=== PATIENT | male | born 1970 | race Caucasian/White ===

== ENCOUNTER 2017-05-01 08:15 | Emergency (ER) | payer SELFPAY ==
[2017-05-01] MEDS ORDERED: Sodium Chloride 0.9% 2.5 ML Syringe FLUSH PRN (08:19)
[2017-05-01] MEDS ORDERED: Sodium Chloride 0.9% 10 ML Syringe FLUSH PRN (08:19)
--- NOTE | 2017-05-01 08:34 | EDM.PDOC ---
ED HPI GENERAL MEDICAL PROBLEM - General Chief Complaint: Upper Extremity Injury/Pain Stated Complaint: LEFT ARM TINGLING AND BURNING Time Seen by Provider: 05/01/17 08:19 Source of Information: Reports: Patient History Limitations: Reports: No Limitations - History of Present Illness INITIAL COMMENTS - FREE TEXT/NARRATIVE: History of present illness: []Patient is a right-handed male presents with left hand numbness, weakness and "clumsiness" his left hand since 3 in the morning. He states the numbness until goes up to mid forearm and has never felt this in the past. He denies chest pain , dizziness, headache, shortness of breath or any other numbness or weakness in his body. 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 Review of systems: As per history of present illness and below otherwise all systems reviewed and negative. Past medical history: As per history of present illness and as reviewed below otherwise noncontributory. Surgical history: As per history of present illness and as reviewed below otherwise noncontributory. Social history: No reported history of drug or alcohol abuse. Family history: As per history of present illness and as reviewed below otherwise noncontributory. Physical exam: General: Well developed, well nourished patient is very anxious and tearful HEENT: Atraumatic, normocephalic, pupils reactive, negative for conjunctival pallor or scleral icterus, mucous membranes moist, throat clear, neck supple, nontender, trachea midline. Lungs: Clear to auscultation, breath sounds equal bilaterally, chest nontender. Heart: S1S2, regular, negative for clicks, rubs, or JVD. Abdomen: Soft, nondistended, nontender. Negative for masses or hepatosplenomegaly. Negative for costovertebral tenderness. Pelvis: Stable nontender. Genitourinary: Deferred. Rectal: Deferred. Extremities: Atraumatic, negative for cords or calf pain. Neurovascular unremarkable. Neuro: Awake, alert, oriented. Cranial nerves II through XII unremarkable. Cerebellum unremarkable. On initial extremity Exam patient had a marked weakness of superintendent general on the left with numbness and tingling medial nerve distribution Diagnostics: []Stroke workup done and results all negative Therapeutics: [] Impression: []Right arm numbness and tingling, resolved Plan: []Follow-up primary care this is more likely carpal tunnel syndrome and would recommend further workup with EMG studies if symptoms recur Definitive disposition and diagnosis as appropriate pending reevaluation and review of above. left arm Pain Score (Numeric/FACES): 1 - Related Data Allergies Allergy/AdvReac Type Severity Reaction Status Date / Time No Known Allergies Allergy Verified 05/01/17 08:23 Home Meds: Home Meds . [No Known Home Meds] 05/01/17 [History] Review of Systems - Review of Systems Review Of Systems: See Below (See history of present illness) ED EXAM, GENERAL - Physical Exam Exam: See Below (See history of present illness) Course - Vital Signs Last Recorded V/S: Last Vital Signs Temp 97.3 F 05/01/17 08:15 Pulse 81 05/01/17 08:15 Resp 19 05/01/17 08:48 BP 117/73 05/01/17 08:48 Pulse Ox 98 05/01/17 08:48 - Orders/Labs/Meds Orders: Active Orders 24 hr Category Date Time Status Assess Neurological Status [RC] ASDIRECTED Care 05/01/17 08:19 Active Bedrest [RC] ASDIRECTED Care 05/01/17 08:19 Active Blood Glucose Check, Bedside [RC] STAT Care 05/01/17 08:19 Active Cardiac Monitoring [RC] . DIRECTED Care 05/01/17 08:19 Active EKG Documentation Completion [RC] STAT Care 05/01/17 08:19 Active Height and Weight [RC] UPON Care 05/01/17 08:19 Active Initiate Acute Stroke Protocol [RC] STAT Care 05/01/17 08:19 Active NIH Stroke Scale [RC] ASDIRECTED Care 05/01/17 08:19 Active Nursing Bedside Swallow Screen [RC] ASDIRECTED Care 05/01/17 08:19 Active Oxygen Therapy [RC] ASDIRECTED Care 05/01/17 08:19 Active Stroke Education, General [RC] Click to Edit Care 05/01/17 08:19 Active Vital Signs [RC] Q15M Care 05/01/17 08:19 Active Sodium Chloride 0.9% [Saline Flush] Med 05/01/17 08:19 Active 10 ml FLUSH ASDIRECTED PRN Sodium Chloride 0.9% [Saline Flush] Med 05/01/17 08:19 Active 2.5 ml FLUSH ASDIRECTED PRN Peripheral IV Insertion Adult [OM.PC] Stat Ot 05/01/17 08:19 Ordered Peripheral IV Insertion Adult [OM.PC] Stat Ot 05/01/17 08:19 Ordered Medication Orders Sodium Chloride (Saline Flush) 10 ml FLUSH ASDIRECTED PRN PRN Reason: Keep Vein Open Sodium Chloride (Saline Flush) 2.5 ml FLUSH ASDIRECTED PRN PRN Reason: Keep Vein Open Labs: Laboratory Tests 05/01/17 05/01/17 05/01/17 Range/Units 08:35 08:43 08:43 WBC 4.80 (4.0-11.0) K/uL RBC 4.69 (4.50-5.90) M/uL Hgb 13.5 (13.0-17.0) g/dL Hct 39.4 (38.0-50.0) % MCV 84.0 (80.0-98.0) fL MCH 28.8 (27.0-32.0) pg MCHC 34.3 (31.0-37.0) g/dL RDW Std Deviation 40.1 (28.0-62.0) fl RDW Coeff of Prateek 13 (11.0-15.0) % Plt Count 156 (150-400) K/uL MPV 10.80 (7.40-12.00) fL Neut % (Auto) 51.3 (48.0-80.0) % Lymph % (Auto) 30.4 (16.0-40.0) % [place] % (Auto) 13.1 (0.0-15.0) % Eos % (Auto) 4.6 (0.0-7.0) % Baso % (Auto) 0.6 (0.0-1.5) % Neut # (Auto) 2.5 (1.4-5.7) K/uL Lymph # (Auto) 1.5 (0.6-2.4) K/uL [place] # (Auto) 0.6 (0.0-0.8) K/uL Eos # (Auto) 0.2 (0.0-0.7) K/uL Baso # (Auto) 0.0 (0.0-0.1) K/uL Nucleated RBC % 0.0 /100WBC Nucleated RBCs # 0 K/uL INR 1.05 (0.86-1.11) APTT 29.2 (18.6-31.3) SEC Sodium (136-146) mmol/L Potassium (3.5-5.1) mmol/L Chloride (98-110) mmol/L Carbon Dioxide (21-31) mmol/L BUN (6.0-23.0) mg/dL Creatinine (0.6-1.5) mg/dL Est Cr Clr Drug Dosing mL/min Estimated GFR (MDRD) ml/min Glucose (60-110) mg/dL POC Glucose 93 (60-110) mg/dL Calcium (8.8-10.8) mg/dL Total Bilirubin (0.1-1.5) mg/dL AST (5-40) IU/L ALT (8-54) IU/L Alkaline Phosphatase (40-150) Troponin I (0.0-0.29) NG/ML Total Protein (6.0-8.0) g/dL Albumin (3.5-5.0) g/dL Globulin (2.0-3.5) g/dL Albumin/Globulin Ratio (1.3-2.8) TSH 3rd Generation (0.47-5.0) uIU/mL 05/01/17 Range/Units 08:43 WBC (4.0-11.0) K/uL RBC (4.50-5.90) M/uL Hgb (13.0-17.0) g/dL Hct (38.0-50.0) % MCV (80.0-98.0) fL MCH (27.0-32.0) pg MCHC (31.0-37.0) g/dL RDW Std Deviation (28.0-62.0) fl RDW Coeff of Prateek (11.0-15.0) % Plt Count (150-400) K/uL MPV (7.40-12.00) fL Neut % (Auto) (48.0-80.0) % Lymph % (Auto) (16.0-40.0) % [place] % (Auto) (0.0-15.0) % Eos % (Auto) (0.0-7.0) % Baso % (Auto) (0.0-1.5) % Neut # (Auto) (1.4-5.7) K/uL Lymph # (Auto) (0.6-2.4) K/uL [place] # (Auto) (0.0-0.8) K/uL Eos # (Auto) (0.0-0.7) K/uL Baso # (Auto) (0.0-0.1) K/uL Nucleated RBC % /100WBC Nucleated RBCs # K/uL INR (0.86-1.11) APTT (18.6-31.3) SEC Sodium 139 (136-146) mmol/L Potassium 3.7 (3.5-5.1) mmol/L Chloride 107 (98-110) mmol/L Carbon Dioxide 25 (21-31) mmol/L BUN 8 (6.0-23.0) mg/dL Creatinine 0.8 (0.6-1.5) mg/dL Est Cr Clr Drug Dosing 110.17 mL/min Estimated GFR (MDRD) > 60.0 ml/min Glucose 98 (60-110) mg/dL POC Glucose (60-110) mg/dL Calcium 9.0 (8.8-10.8) mg/dL Total Bilirubin 0.6 (0.1-1.5) mg/dL AST 42 H (5-40) IU/L ALT 38 (8-54) IU/L Alkaline Phosphatase 54 (40-150) Troponin I < 0.10 (0.0-0.29) NG/ML Total Protein 6.4 (6.0-8.0) g/dL Albumin 3.9 (3.5-5.0) g/dL Globulin 2.5 (2.0-3.5) g/dL Albumin/Globulin Ratio 1.6 (1.3-2.8) TSH 3rd Generation 1.41 (0.47-5.0) uIU/mL Meds: Medications Generic Name Dose Route Start Last Admin Trade Name Freq PRN Reason Stop Dose Admin Sodium Chloride 10 ml 05/01/17 08:19 Saline Flush FLUSH ASDIRECTED PRN Keep Vein Open Sodium Chloride 2.5 ml 05/01/17 08:19 Saline Flush FLUSH ASDIRECTED PRN Keep Vein Open Departure - Departure Time of Disposition: 10:07 Disposition: Home, Self-Care 01 Condition: Good Clinical Impression: Left hand weakness - Discharge Information Referrals: Trisha Zapata MD [Resident] - (Call for next available appointment) Forms: ED Department Discharge Additional Instructions: The following information is given to patients seen in the emergency department who are being discharged to home. This information is to outline your options for follow-up care. We provide all patients seen in our emergency department with a follow-up referral. The need for follow-up, as well as the timing and circumstances, are variable depending upon the specifics of your emergency department visit. If you don't have a primary care physician on staff, we will provide you with a referral. We always advise you to contact your personal physician following an emergency department visit to inform them of the circumstance of the visit and for follow-up with them and/or the need for any referrals to a consulting specialist. The emergency department will also refer you to a specialist when appropriate. This referral assures that you have the opportunity for follow-up care with a specialist. All of these measure are taken in an effort to provide you with optimal care, which includes your follow-up. Under all circumstances we always encourage you to contact your private physician who remains a resource for coordinating your care. When calling for follow-up care, please make the office aware that this follow-up is from your recent emergency room visit. If for any reason you are refused follow-up, please contact the [facility] Emergency Department at and asked to speak to the emergency department charge nurse. Ibuprofen, ice to wrist, where splint as needed follow-up with primary care turn if symptoms worsen or change - My Orders Last 24 Hours: My Active Orders 05/01/17 08:19 Assess Neurological Status [RC] ASDIRECTED Bedrest [RC] ASDIRECTED Blood Glucose Check, Bedside [RC] STAT Cardiac Monitoring [RC] . DIRECTED EKG Documentation Completion [RC] STAT Height and Weight [RC] UPON Initiate Acute Stroke Protocol [RC] STAT NIH Stroke Scale [RC] ASDIRECTED Nursing Bedside Swallow Screen [RC] ASDIRECTED Oxygen Therapy [RC] ASDIRECTED Stroke Education, General [RC] Click to Edit Vital Signs [RC] Q15M Sodium Chloride 0.9% [Saline Flush] 10 ml FLUSH ASDIRECTED PRN Sodium Chloride 0.9% [Saline Flush] 2.5 ml FLUSH ASDIRECTED PRN Peripheral IV Insertion Adult [OM.PC] Stat Peripheral IV Insertion Adult [OM.PC] Stat - Assessment/Plan Last 24 Hours: My Active Orders 05/01/17 08:19 Assess Neurological Status [RC] ASDIRECTED Bedrest [RC] ASDIRECTED Blood Glucose Check, Bedside [RC] STAT Cardiac Monitoring [RC] . DIRECTED EKG Documentation Completion [RC] STAT Height and Weight [RC] UPON Initiate Acute Stroke Protocol [RC] STAT NIH Stroke Scale [RC] ASDIRECTED Nursing Bedside Swallow Screen [RC] ASDIRECTED Oxygen Therapy [RC] ASDIRECTED Stroke Education, General [RC] Click to Edit Vital Signs [RC] Q15M Sodium Chloride 0.9% [Saline Flush] 10 ml FLUSH ASDIRECTED PRN Sodium Chloride 0.9% [Saline Flush] 2.5 ml FLUSH ASDIRECTED PRN Peripheral IV Insertion Adult [OM.PC] Stat Peripheral IV Insertion Adult [OM.PC] Stat
--- NOTE | 2017-05-01 08:43 | CT ---
EXAMINATION: Non contrast CT head. Coronal and sagittal reformats. HISTORY: Stroke code FINDINGS: No evidence of intra or extra axial hemorrhage, mass, midline shift, hydrocephalus or edema. No hypoattenuation changes in the major vascular territories to suggest acute infarct. No abnormal intracranial calcifications are detected. No evidence of substantial vascular calcificat ions. Paranasal sinuses and mastoid air cells are well aerated without substantial findings. Orbits and gl obes are symmetric. Pituitary fossa appears unremarkable. Calvarium is intact. No evidence of skull fracture. IMPRESSION: No acute intracranial findings. Above findings were called to the ER at 8:40 AM.
[2017-05-01 09:29] LABS: CHLORIDE,CL 107 mmol/L (98-110); SODIUM,NA 139 mmol/L (136-146)
== END 2017-05-01 10:22 | disposition home or self-care (01) ==
LOC: MW.ED 08:15
DX: R29.898 Other symptoms and signs involving the musculoskeletal system (principal); R20.2 Paresthesia of skin
CPT/HCPCS: 36415; 70450; 70450-26; 80053; 82962; 84443; 84484; 85025; 85610; 85730; 93005; 99285-25

== ENCOUNTER 2017-09-07 08:29 | Emergency (ER) | payer BC ==
[2017-09-07] MEDS ORDERED: Ketorolac 60 MG/2 ML SDV IM ONE (08:33)
--- NOTE | 2017-09-07 08:35 | EDM.PDOC ---
ED HPI GENERAL MEDICAL PROBLEM - General Stated Complaint: LOWER BACK PAIN Time Seen by Provider: 09/07/17 08:34 Source of Information: Reports: Patient - History of Present Illness INITIAL COMMENTS - FREE TEXT/NARRATIVE: HISTORY AND PHYSICAL: History of present illness: [Patient has history of L4-L5 disc bulge is seems that 2 weeks prior he was lifting a fridge developed immediate pain 8 out of 10 with radiation to the heel on the left, he has been seen by [facility] with lumbar spine film performed apparently and he has been taking ibuprofen and Flexeril without benefit He is not tight taken either this morning I did provide Toradol and ultimately and Sunol tablet Patient will be following up fairly today for an MRI between 1 and 4 PM No footdrop saddle anesthesia or bowel or urine symptoms ] Review of systems: As per history of present illness and below otherwise all systems reviewed and negative. Past medical history: As per history of present illness and as reviewed below otherwise noncontributory. Surgical history: As per history of present illness and as reviewed below otherwise noncontributory. Social history: No reported history of drug or alcohol abuse. Family history: As per history of present illness and as reviewed below otherwise noncontributory. Physical exam: HEENT: Atraumatic, normocephalic, pupils reactive, negative for conjunctival pallor or scleral icterus, mucous membranes moist, throat clear, neck supple, nontender, trachea midline. Lungs: Clear to auscultation, breath sounds equal bilaterally, chest nontender. Heart: S1S2, regular, negative for clicks, rubs, or JVD. Abdomen: Soft, nondistended, nontender. Negative for masses or hepatosplenomegaly. Negative for costovertebral tenderness. Pelvis: Stable nontender. Genitourinary: Deferred. Rectal: Deferred. Extremities: Atraumatic, negative for cords or calf pain. Neurovascular unremarkable. Neuro: Awake, alert, oriented. Cranial nerves II through XII unremarkable. Cerebellum unremarkable. Motor and sensory unremarkable throughout. Exam nonfocal. Diagnostics: [Lumbar spine ] Therapeutics: [Toradol 60 IM ]Sunol 7.5 by mouth now Sunol 5 per 325 one by mouth every 6 when necessary #20 no refill Impression: [Low back pain] History of disc bulge Definitive disposition and diagnosis as appropriate pending reevaluation and review of above. low back Pain Score (Numeric/FACES): 8 - Related Data Allergies Allergy/AdvReac Type Severity Reaction Status Date / Time No Known Allergies Allergy Verified 09/07/17 08:39 Home Meds: Home Meds . [No Known Home Meds] 05/01/17 [History] Past Medical History - Past Surgical History GI Surgical History: Reports: Other (See Below) Other GI Surgeries/Procedures: spleen repair Social & Family History - Family History Family Medical History: Noncontributory ED ROS GENERAL - Review of Systems Review Of Systems: ROS reveals no pertinent complaints other than HPI. ED EXAM, GENERAL - Physical Exam Exam: See Below Course - Vital Signs Last Recorded V/S: Last Vital Signs Temp 97.6 F 09/07/17 08:37 Pulse 96 09/07/17 08:37 Resp 18 09/07/17 08:37 BP 118/83 09/07/17 08:37 Pulse Ox 98 09/07/17 08:37 - Orders/Labs/Meds Orders: Active Orders 24 hr Category Date Time Status Lumbar Spine 2 or 3V [CR] Stat Exams 09/07/17 08:34 Taken Meds: Medications Discontinued Medications Generic Name Dose Route Start Last Admin Trade Name Freq PRN Reason Stop Dose Admin Hydrocodone Bitart/Acetaminophen 1 tab 09/07/17 09:06 Sunol 325-7.5 Mg PO 09/07/17 09:07 NOW STA Ketorolac Tromethamine 60 mg 09/07/17 08:33 09/07/17 08:49 Toradol IM 09/07/17 08:34 60 mg ONETIME ONE Administration Departure - Departure Time of Disposition: 09:19 Disposition: Home, Self-Care 01 Condition: Good Clinical Impression: Low back pain - Discharge Information Referrals: PCP,None [Primary Care Provider] - Additional Instructions: Medication as prescribed Return if symptoms persist or worsen Follow-up with [facility] for management and MRI as discussed this afternoon You may also consider establishing primary care at the phone number below [facility] [address] [place] [id number] The following information is given to patients seen in the emergency department who are being discharged to home. This information is to outline your options for follow-up care. We provide all patients seen in our emergency department with a follow-up referral. The need for follow-up, as well as the timing and circumstances, are variable depending upon the specifics of your emergency department visit. If you don't have a primary care physician on staff, we will provide you with a referral. We always advise you to contact your personal physician following an emergency department visit to inform them of the circumstance of the visit and for follow-up with them and/or the need for any referrals to a consulting specialist. The emergency department will also refer you to a specialist when appropriate. This referral assures that you have the opportunity for follow-up care with a specialist. All of these measure are taken in an effort to provide you with optimal care, which includes your follow-up. Under all circumstances we always encourage you to contact your private physician who remains a resource for coordinating your care. When calling for follow-up care, please make the office aware that this follow-up is from your recent emergency room visit. If for any reason you are refused follow-up, please contact the [facility] emergency department at and asked to speak to the emergency department charge nurse. - My Orders Last 24 Hours: My Active Orders 09/07/17 08:34 Lumbar Spine 2 or 3V [CR] Stat - Assessment/Plan Last 24 Hours: My Active Orders 09/07/17 08:34 Lumbar Spine 2 or 3V [CR] Stat
[2017-09-07] MEDS ORDERED: Acetaminophen/HYDROcodone 325-7.5 MG Tab PO STA (09:06)
--- NOTE | 2017-09-07 09:23 | CR ---
EXAMINATION: Lumbar spine HISTORY: Pain COMPARISON: None TECHNIQUE: AP and lateral views FINDINGS: The lumbar spinal alignment is normal. The vertebral body heights appear well maintained. M oderate disc space narrowing at L5-S1. Mild marginal osteophytes. The SI joints are symmetric. Bone m ineralization is normal. IMPRESSION: 1. Mild degenerative changes without acute findings.
== END 2017-09-07 09:55 | disposition home or self-care (01) ==
LOC: MW.ED 08:29
DX: M54.5 Low back pain (principal)
CPT/HCPCS: 72100; 99283; A9270; J1885